=== PATIENT | female | born 1990 | race Two or more races ===

== ENCOUNTER 2017-03-28 02:01 | Emergency (ER) | payer OTHER ==
[~2017-03-28] VITALS: Ht 160 cm; Wt 81.6 kg
[2017-03-28 04:00] VITALS: BP 102/69
[2017-03-28] MEDS ORDERED: DOCU-109 PO (04:16)
--- NOTE | 2017-03-28 04:16 | PHYS DOC ---
Past Medical History Past Medical History: No Pertinent History Past Surgical History: Tonsillectomy Alcohol Use: None Drug Use: None Adult General Chief Complaint Chief Complaint: CONSTIPATION HPI HPI Patient is a 26 year old female who presents with constipation. The patient states she has not had a bowel movement for 2.5 weeks, other than small hard stools. She reports abdominal discomfort. She denies fevers/chills, vomiting, hematochezia/melena. LMP was 02/19. She has no history of abdominal surgeries. Tried taking stool softener at home without relief of symptoms. Review of Systems Review of Systems Constitutional: Denies fever or chills HENT: Denies nasal congestion or sore throat Respiratory: Denies cough or shortness of breath Cardiovascular: Denies chest pain GI: Reports constipation. Denies abdominal pain, nausea, vomiting, bloody stools or diarrhea : Denies dysuria or hematuria Musculoskeletal: Denies back pain Integument: Denies rash Neurologic: Denies headache Allergies Allergies Allergies Coded Allergies Type Severity Reaction Last Updated Verified No Known Drug Allergies 02/28/15 No Physical Exam Physical Exam Constitutional: obese, no acute distress, non-toxic appearance. HENT: Normocephalic, atraumatic, bilateral external ears normal, oropharynx moist, nose normal. Eyes: conjunctiva normal, no discharge. Cardiovascular: RRR, no murmurs, no edema. Lungs & Thorax: LCTAB, no wheezing, no respiratory distress. Abdomen: normal bowel sounds, soft, no focal tenderness with palpation in all 4 quadrants, no rebound/guarding, no masses or pulsatile masses, nondistended. Rectal: small external hemorrhoid not thrombosed, no fissure, no gross blood Skin: Warm, dry, no erythema, no rash. Back: No CVA tenderness. Extremities: No tenderness, no edema. Neurologic: Alert and oriented X 3 Current Patient Data Vital Signs Vital Signs Date Time Temp Pulse Resp B/P (MAP) Pulse Ox O2 Delivery O2 Flow Rate FiO2 03/28/17 04:00 64 102/69 (80) 99 Room Air 03/28/17 03:30 20 03/28/17 03:01 97.8 97.8 Lab Values Laboratory Tests Test 03/28/17 02:02 POC Urine HCG, Qualitative Hcg positive (Negative) EKG EKG [] Radiology/Procedures Radiology/Procedures [] Course & Med Decision Making Course & Med Decision Making Pertinent Labs and Imaging studies reviewed. (See chart for details) The patient presents with constipation. Well appearing with nontender abdomen. Ordered urine HCG prior to planned imaging; test is positive & likely contributing to constipation. I informed patient of result. Will not obtain XR given this new finding. Recommend increased fluid/fiber, gave prescription for colace, may purchase fleet enema for use at home. Follow up with Dr. Meneses in OB clinic here or with her own OB within 1 week. Return to the emergency department for high fever, severe pain, uncontrolled vomiting, any otherwise worsening condition. Discharged home in stable condition. Dragon Disclaimer Dragon Disclaimer This electronic medical record was generated, in whole or in part, using a voice recognition dictation system. Departure Departure Impression: Primary Impression: Constipation Additional Impression: Disposition: 01 HOME, SELF-CARE Condition: STABLE Referrals: NO PCP (PCP) YU MENESES Jr, MD Patient Instructions: Constipation, Adult, [id number], - First Trimester, [id number] Additional Instructions: You were seen in the emergency department today for constipation. You had a positive test. This can certainly contribute to constipation. please increase fluid & fiber in diet. Take colace. You can purchase a fleet enema over the counter & use at home. Follow up with your OB or with Dr. Meneses here at [place] in 1 week. Come back for high fever, severe pain, uncontrolled vomiting, heavy vaginal bleeding requiring more than 1 pad per hour , any otherwise worsening condition. Scripts Docusate Sodium (COLACE) 100 Mg Capsule 1 CAP PO BID Y for CONSTIPATION, #30 CAP Prov: TITI JAIME MD 03/28/17 Problem Qualifiers TITI JAIME MD Mar 28, 2017 04:16
== END 2017-03-28 04:32 | disposition home or self-care (01) ==
LOC: ER 02:01
DX: O99.611 Diseases of the digestive system complicating pregnancy, first trimester (principal); K59.00 Constipation, unspecified; Z3A.01 Less than 8 weeks gestation of pregnancy
CPT/HCPCS: 81025; 99283